=== PATIENT | female | born 1990 | race Caucasian/White ===

== ENCOUNTER 2018-04-17 19:11 | Emergency (ER) | payer BC ==
--- NOTE | 2018-04-17 20:52 | ED ---
Syncope/Near Syncope - HPI Summary HPI Summary: Patient is a 27 y/o F presenting to ED with complaints of near-syncopal episode today at 1730. 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 At this time, she reports tingling in her feet and a "bouncing" sensation. Afterwards, she had a near-syncopal episode. Patient states that she managed to catch herself against a wall. Afterwards, she felt dizzy and nausea. She denies LOC but felt close to it. PMHx of vertigo, thyroid issues is reported. She notes that present Sx are not similar to her vertigo, states this is the first episode of present Sx. Left sided chest pain and periumbilical pain is also reported. After near syncope, patient went to sit down. Hang, who is present in the room, states that patient appeared flushed. Patient was taken to [facility], BG was measured to be 114 mg/ dl. On triage, pain is rated 5/10. Nothing is noted to aggravate/alleviate Sx. Home medications and allergies are reviewed. - History Of Current Complaint Chief Complaint: EDSyncope Time Seen by Provider: 04/17/18 19:36 Hx Obtained From: Patient Onset/Duration: Sudden Onset, Lasting Hours - onset at 1730, Still Present Timing: Hours - onset 1730 today Activity At Onset: Exertion - ambulation Associated Head Trauma: No Aggravating Factor(s): Nothing Alleviating Factor(s): Nothing Associated Signs And Symptoms: Chest Pain, Dizzy, Lightheadedness, Other - POSITIVE - TINGLING IN FEET, NAUSEA, PERIUMBILICAL PAIN, FLUSHED, "BOUNCING" SENSATION; NEGATIVE - LOC - Allergies/Home Medications Allergies/Adverse Reactions: Allergies Allergy/AdvReac Type Severity Reaction Status Date / Time azithromycin Allergy Unknown Verified 04/17/18 19:24 Reaction Details Home Medications: Home Medications Cholecalciferol (Vitamin D3) [Vitamin D3] 50,000 mg PO WEEKLY 04/17/18 [History Confirmed 04/17/18] Levothyroxine TAB* [Synthroid TAB*] 75 mcg PO DAILY 04/17/18 [History Confirmed 04/17/18] Pantoprazole TAB (NF) [Protonix TAB (NF)] 40 mg PO DAILY 04/17/18 [History Confirmed 04/17/18] PMH/Surg Hx/FS Hx/Imm Hx Sensory History: Denies: Hx Legally Blind, Hx Deafness Opthamlomology History: Denies: Hx Legally Blind EENT History: Denies: Hx Deafness Infectious Disease History: No Infectious Disease History: Denies: Traveled Outside the [place] in Last 30 Days - Family History Known Family History: Negative: Blood Disorder - Social History Alcohol Use: Weekly Substance Use Type: Reports: None Smoking Status (MU): Former Smoker Review of Systems Positive: Other - POSITIVE - "BOUNCING" SENSATION, FLUSHED Positive: Chest Pain Positive: Abdominal Pain, Nausea Neurological: Other - POSITIVE - DIZZINESS, LIGHT-HEADEDNESS, TINGLING IN FEET Positive: Syncope - NEAR SYNCOPE, NO LOC All Other Systems Reviewed And Are Negative: Yes Physical Exam - Summary Physical Exam Summary: Appearance: Well-appearing, Well-nourished, lying in bed comfortably Skin: Warm, dry, no obvious rash Eyes: sclera anicteric, no conjunctival pallor ENT: mucous membranes moist, pharynx appears normal Neck: Supple, nontender Respiratory: Clear to auscultation, no signs of respiratory distress Cardiovascular: Normal S1, S2. No murmurs. Normal distal pulses in tibial and radial bilaterally. Abdomen: Soft, nontender, normal active bowel sounds present Musculoskeletal: Normal, Strength/ROM Intact Neurological: A&Ox3, awake and alert, mentation is normal, speech is fluent and appropriate Psychiatric: affect is normal, does not appear anxious or depressed Triage Information Reviewed: Yes Vital Signs On Initial Exam: Initial Vitals Temp Pulse Resp BP Pulse Ox 97.8 F 76 16 129/80 97 04/17/18 19:15 04/17/18 19:15 04/17/18 19:15 04/17/18 19:15 04/17/18 19:15 Vital Signs Reviewed: Yes Diagnostics - Vital Signs Vital Signs Temp Pulse Resp BP Pulse Ox 04/17/18 19:15 97.8 F 76 16 129/80 97 - Laboratory Result Diagrams: 04/17/18 21:01 04/17/18 21:01 Lab Statement: Any lab studies that have been ordered have been reviewed, and results considered in the medical decision making process. - Radiology CXR Radiology Interpretation Completed By: ED Physician Summary of Radiographic Findings: NAD - EKG 1928 Cardiac Rate: NL - rate of 77 bpm EKG Rhythm: Sinus Rhythm Summary of EKG Findings: Normal EKG: NSR at 77 BPM, P waves, QRS complex, and T waves are within normal limits, T waves and intervals are normal, no ischemic changes. This is a normal EKG Re-Evaluation - Re-Evaluation First Eval Re-Evaluation Time: 22:20 Comment: Results of labs and tests were discussed. Patient was discharged to home, patient is agreeable with this. Course/Dx Course Of Treatment: Patient is a 27 y/o F presenting to ED with complaints of near-syncopal episode today at 1730. 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 At this time, she reports tingling in her feet and a "bouncing" sensation. Afterwards, she had a near-syncopal episode. Patient states that she managed to catch herself against a wall. Afterwards, she felt dizzy and nausea. She denies LOC but felt close to it. PMHx of vertigo, thyroid issues is reported. She notes that present Sx are not similar to her vertigo, states this is the first episode of present Sx. Left sided chest pain and periumbilical pain is also reported. After near syncope, patient went to sit down. Hang, who is present in the room, states that patient appeared flushed. Patient was taken to [facility], BG was measured to be 114 mg/dl. Physical exam is normal. Normal EKG: NSR at 77 BPM, P waves, QRS complex, and T waves are within normal limits, T waves and intervals are normal, no ischemic changes. This is a normal EKG. Labs showed WBC 13.2, absolute neuts 10.1, lactic acid 0.9, beta HCG < 0.6. UA was negative. CXR is NAD. Results of labs and tests were discussed. Patient was discharged to home, patient is agreeable with this. - Diagnoses Provider Diagnoses: Syncope, near Discharge - Sign-Out/Discharge Documenting (check all that apply): Patient Departure - discharge - Discharge Plan Condition: Stable Disposition: HOME Patient Education Materials: Near Syncope (ED) Referrals: [facility] [Outside] No Primary Care Phys,NOPCP [Primary Care Provider] - Additional Instructions: We did not find any significant abnormalities on screening labs or EKG, other than a mild rise of your WBC count which is not very specific. It could indicate a developing infection of some type which could make you weak. For right now I have no limitations for you, but pay attention to how you feel and if your symptoms worsen or change, sometimes that is the best way to make a diagnosis. - Billing Disposition and Condition Condition: STABLE Disposition: Home - Attestation Statements Document Initiated by Elen: Yes Documenting Scribe: CHACHO FOSTER Provider For Whom Elen is Documenting (Include Credential): CORY EPPS MD Scribe Attestation: I, CHACHO FOSTER , scribed for CORY EPPS MD on 04/18/18 at 1420. Scribe Documentation Reviewed: Yes Provider Attestation: The documentation as recorded by the CHACHO carrizales accurately reflects the service I personally performed and the decisions made by me, CORY EPPS MD Status of Scribe Document: Viewed
[2018-04-17 21:10] LABS: ABS Basophils 0.1 10^3/ul (0-0.2); ABS Eosinophils 0.1 10^3/ul (0-0.6); ABS Lymphocytes 2.2 10^3/ul (1.0-4.8); ABS Monocytes 0.8 10^3/ul (0-0.8); ABS Neutrophils 10.1 10^3/ul (1.5-7.7); ABS Nucleated RBC 0 10^3/ul; Eosinophil % 0.7 %; Hematocrit 39 % (35-47); Hemoglobin 13.2 g/dl (12.0-16.0); Lymphocyte % 16.4 %; Mean Corpuscular HGB Conc 34 g/dl (31-36); Mean Corpuscular Hemoglobin 30 pg (27-31); Mean Corpuscular Volume 91 fL (80-97); Mean Platelet Volume 7.5 fL (7.4-10.4); Nucleated Red Blood Cells % 0; Platelet Count 364 10^3/ul (150-450); Red Blood Count 4.34 10^6/ul (4.00-5.40); Red Cell Distribution Width 13 % (10.5-15); White Blood Count 13.2 10^3/ul (3.5-10.8)
[2018-04-17 21:34] LABS: EGFR Non-African American 84.2 (>60)
[2018-04-17 21:52] LABS: Urine Appearance Clear; Urine Blood Negative (Negative); Urine Color Yellow; Urine Ketones Negative (Negative); Urine Protein Negative (Negative); Urine Specific Gravity 1.028 (1.010-1.030); Urine Urobilinogen Negative (Negative)
[2018-04-17 22:26] VITALS: BP 124/78
== END 2018-04-17 22:25 | disposition home or self-care (01) ==
LOC: ED 19:11
DX: R55 Syncope and collapse (principal); R07.89 Other chest pain; R42 Dizziness and giddiness; R20.2 Paresthesia of skin; R11.0 Nausea; R10.33 Periumbilical pain; Z32.02 Encounter for pregnancy test, result negative; Z88.1 Allergy status to other antibiotic agents; Z87.891 Personal history of nicotine dependence
CPT/HCPCS: 36415; 71046; 80053; 81003; 83605; 84443; 84702; 85025; 93005; 99282

== ENCOUNTER 2018-05-02 16:16 | Emergency (ER) | payer BC ==
--- NOTE | 2018-05-02 16:41 | ED ---
HPI Chest Pain - HPI Summary HPI Summary: Patient is a 27 y/o F presenting to ED with complaints of left anterior chest pain, SOB and dizziness onsetting yesterday. First day Sx were intermittent, today they have been constant. Patient states that she was resting when Sx first onset. She reports coughing that is intermittently productive as well as body aches. Fever, chills, recent trauma are denied. She notes that she has had chronic BLE edema for the past four years. No cardiac Hx reported. However, patient notes that she has been going to the [facility] at work more frequently over the past few weeks due to intermittent nausea and general illness. She is concerned about her chest pain and her diastolic BP which was measured to be high 90s at work today. Patient sees GI for chronic abdominal pain, notes that she is on PPI. Patient reports regular periods, she is not currently on her period. PSHx of tonsillectomy, Lasix surgery. Patient is a former smoker, chews tobacco. She drinks alc occasionally. Fever, chills, erythema of eyes, sore throat, abdominal pain, N/V, dysuria, hematuria, rash are not reported. On triage, pain is rated 4/10, nothing is noted to aggravate/alleviate Sx. Home medications and allergies are reviewed. - History of Current Complaint Time Seen by Provider: 05/02/18 16:37 Hx Obtained From: Patient Onset/Duration: Started Days Ago - yesterday, Still Present Timing: Constant, Lasting Days - yesterday Pain Intensity: 4 Pain Scale Used: 0-10 Numeric - 4/10 Chest Pain Location: Left Anterior Chest Pain Radiates: No Aggravating Factor(s): Nothing Alleviating Factor(s): Nothing Associated Signs and Symptoms: Positive: Chest Pain, Dizziness, Shortness of Breath, Swelling - chronic BLE, Nausea - episodes over the past few weeks, Productive Cough, Abdominal Pain - chronic, Calf Pain/Swelling - swelling at BLE , chronic, Other: - no recent trauma, fever, chills, erythema of eyes, sore throat, abdominal pain, N/V, dysuria, hematuria, rash but does note body aches. Negative: Fever, Chills, Vomiting - Allergy/Home Medications Allergies/Adverse Reactions: Allergies Allergy/AdvReac Type Severity Reaction Status Date / Time azithromycin Allergy Unknown Verified 05/02/18 16:44 Reaction Details PMH/Surg Hx/FS Hx/Imm Hx Sensory History: Denies: Hx Legally Blind, Hx Deafness Opthamlomology History: Denies: Hx Legally Blind EENT History: Denies: Hx Deafness - Family History Known Family History: Negative: Blood Disorder - Social History Alcohol Use: Weekly Substance Use Type: Reports: None Smoking Status (MU): Former Smoker Review of Systems Constitutional: Other - NEGATIVE - RECENT TRAUMA Negative: Fever, Chills Negative: Erythema Negative: Sore Throat Positive: Chest Pain Positive: Shortness Of Breath, Cough Positive: Abdominal Pain - chronic , Nausea - intermittent over the past few weeks . Negative: Vomiting Negative: dysuria, hematuria Positive: Myalgia, Edema - chronic BLE Negative: Rash Neurological: Other - POSITIVE - DIZZINESS All Other Systems Reviewed And Are Negative: Yes Physical Exam - Summary Physical Exam Summary: Constitutional: Well-developed, Well-nourished, Alert. (-) Distressed Skin: Warm, Dry HENT: Normocephalic; Atraumatic Eyes: Conjunctiva normal Neck: Musculoskeletal ROM normal neck. (-) JVD, (-) Stridor, (-) Tracheal deviation Cardio: Rhythm regular, rate normal, Heart sounds normal; Intact distal pulses; The pedal pulses are 2+ and symmetric. Radial pulses are 2+ and symmetric. (-) Murmur Pulmonary/Chest wall: Effort normal. (-) Respiratory distress, (-) Wheezes, (-) Rales Abd: Soft, (+) epigastric, RUQ and LUQ tenderness, (-) Distension, (-) Guarding , (-) Rebound Musculoskeletal: (-) Edema (+) Left CVA Tenderness Lymph: (-) Cervical adenopathy Neuro: Alert, Oriented x3 Psych: Mood and affect Normal Triage Information Reviewed: Yes Vital Signs On Initial Exam: Initial Vitals BP 108/74 05/02/18 16:38 Vital Signs Reviewed: Yes Diagnostics - Laboratory Result Diagrams: 05/02/18 17:18 05/02/18 17:18 Lab Statement: Any lab studies that have been ordered have been reviewed, and results considered in the medical decision making process. - Radiology CXR Radiology Interpretation Completed By: Radiologist Summary of Radiographic Findings: CXR IMPRESSION: No radiographic evidence of acute cardiopulmonary disease. THIS REPORT WAS REVIEWED BY ED PHYSICIAN. - CT abd/pel ct CT Interpretation Completed By: Radiologist Summary of CT Findings: CT ABD/PEL IMPRESSION: No evidence of acute intra- abdominal pathology. THIS REPORT WAS REVIEWED BY ED PHYSICIAN. - Ultrasound No standard instances Ultrasound Interpretation Completed By: Radiologist Summary of Ultrasound Findings: TRANSVAGINAL US IMPRESSION: Trace free fluid otherwise unremarkable study. THIS REPORT WAS REVIEWED BY ED PHYSICIAN. GALLBALDDER US IMPRESSION: 1. There is fatty infiltration of the liver. 2. Question mild sludge in the gallbladder. The gallbladder is otherwise. unremarkable as visualized. THIS REPORT WAS REVIEWED BY ED PHYSICIAN. - EKG 1716 Cardiac Rate: Other Rate - sinus arrhythmia with rate of 63 BPM Summary of EKG Findings: EKG showed sinus arrhythmia with rate of 63 BPM, no STEMI 2115 Cardiac Rate: Bradycardia - rate of 52 BPM EKG Rhythm: Sinus Bradycardia Summary of EKG Findings: EKG showed sinus bradycardia with rate of 52 BPM, no STEMI. Re-Evaluation - Re-Evaluation First Eval Re-Evaluation Time: 20:19 Comment: Patient states she is feeling nauseous, zofran to be given. Second Eval Re-Evaluation Time: 21:04 Comment: Patient states that she is still experiencing light-headedness and chest pain. She is tolerating PO well. Repeat EKG to be ordered. Third Eval Re-Evaluation Time: 21:22 Comment: Repeat EKG and all labs and tests were discussed, patient will be discharged to home. She is agreeable with this. Chest Pain Course/Dx - Course Course Of Treatment: Patient is a 27 y/o F presenting to ED with complaints of left anterior chest pain, SOB and dizziness onsetting yesterday. First day Sx were intermittent, today they have been constant. Patient states that she was resting when Sx first onset. She reports coughing that is intermittently productive as well as body aches. Fever, chills, recent trauma are denied. She notes that she has had chronic BLE edema for the past four years. No cardiac Hx reported. However, patient notes that she has been going to the [facility] [facility] at work more frequently over the past few weeks due to intermittent nausea and general illness. She is concerned about her chest pain and her diastolic BP which was measured to be high 90s at work today. Patient sees GI for chronic abdominal pain, notes that she is on PPI. Patient reports regular periods, she is not currently on her period. PSHx of tonsillectomy, Lasix surgery. Patient is a former smoker, chews tobacco. She drinks alc occasionally. On physical exam , epigastric, RUQ, LUQ, left CVA tenderness is noted. GALLBALDDER US IMPRESSION : 1. There is fatty infiltration of the liver. 2. Question mild sludge in the gallbladder. The gallbladder is otherwise. unremarkable as visualized. CT ABD/ PEL IMPRESSION: No evidence of acute intra-abdominal pathology. TRANSVAGINAL US IMPRESSION: Trace free fluid otherwise unremarkable study. CXR IMPRESSION: No radiographic evidence of acute cardiopulmonary disease. EKG showed sinus arrhythmia with rate of 63 BPM, no STEMI. Labs showed MPV 7.3, D-dimer < 200, glucose 114, lactic acid 1.4. First and second trop are negative. UA was negative. Monoscreen and Flu test were negative. During ED course, patient received fluids, Zofran 4 mg. Second EKG showed sinus bradycardia with rate of 52 BPM, no STEMI. Patient has no signs of pericarditis, EKG x2 was negative. All labs and tests were discussed, patient will be discharged to home. She is agreeable with this. - Diagnoses Provider Diagnoses: Chest pain, Flu-like symptoms Discharge - Sign-Out/Discharge Documenting (check all that apply): Patient Departure - discharge - Discharge Plan Condition: Stable Disposition: HOME Prescriptions: Sucralfate TAB* [Carafate*] 1 gm PO QID #20 tab Patient Education Materials: Chest Pain (ED), How to Take a Blood Pressure (ED) Forms: *Work Release Referrals: [facility] [Outside] Additional Instructions: RETURN TO THE EMERGENCY DEPARTMENT FOR CHANGING OR WORSENING SYMPTOMS. FOLLOW UP WITH PRIMARY CARE PHYSICIAN IN 2 DAYS. - Attestation Statements Document Initiated by Scribe: Yes Documenting Scribe: CHACHO FOSTER Provider For Whom Elen is Documenting (Include Credential): NICK ALVARES MD Scribe Attestation: CHACHO Mata , scribed for NICK ALVARES MD on 05/02/18 at 213. Status of Scribe Document: Ready
[2018-05-02] MEDS ORDERED: NS 0.9% 1000 ML* 1,000 ML IV ONE (17:05)
[2018-05-02 17:31] LABS: ABS Basophils 0.1 10^3/ul (0-0.2); ABS Eosinophils 0.1 10^3/ul (0-0.6); ABS Lymphocytes 2.1 10^3/ul (1.0-4.8); ABS Monocytes 0.6 10^3/ul (0-0.8); ABS Neutrophils 6.4 10^3/ul (1.5-7.7); ABS Nucleated RBC 0 10^3/ul; Eosinophil % 1.2 %; Hematocrit 42 % (35-47); Hemoglobin 14.2 g/dl (12.0-16.0); Lymphocyte % 22.6 %; Mean Corpuscular HGB Conc 34 g/dl (31-36); Mean Corpuscular Hemoglobin 31 pg (27-31); Mean Corpuscular Volume 92 fL (80-97); Mean Platelet Volume 7.3 fL (7.4-10.4); Nucleated Red Blood Cells % 0.1; Platelet Count 403 10^3/ul (150-450); Red Blood Count 4.58 10^6/ul (4.00-5.40); Red Cell Distribution Width 13 % (10.5-15); White Blood Count 9.2 10^3/ul (3.5-10.8)
[2018-05-02 17:45] LABS: Albumin 4.4 g/dL (3.2-5.2); Albumin/Globulin Ratio 1.7 (1-3); BUN/Creatinine Ratio 9.6 (8-20); Calcium 9.6 mg/dL (8.6-10.3); EGFR Non-African American 81.9 (>60); Globulin 2.6 g/dL (2-4); Potassium 4.3 mmol/L (3.5-5.0); Total Bilirubin 0.6 mg/dL (0.2-1.0)
[2018-05-02] MEDS ORDERED: Iohexol 300* (CONTRAST) 10 ML SDV IV ONE (18:42)
[2018-05-02 19:16] LABS: Urine Appearance Clear; Urine Bilirubin Negative (Negative); Urine Blood Negative (Negative); Urine Color Straw; Urine Glucose Negative (Negative); Urine Ketones Negative (Negative); Urine Nitrite Negative (Negative); Urine Protein Negative (Negative); Urine Specific Gravity 1.005 (1.010-1.030); Urine Urobilinogen Negative (Negative)
[2018-05-02] MEDS ORDERED: Ondansetron ODT TAB* 4 MG PO ONE (20:19)
[2018-05-02] MEDS ORDERED: Ondansetron ODT TAB* 4 MG ONE (20:21)
[2018-05-02] MEDS ORDERED: O ndansetron ODT 4MG 5TAB PRPK 4 MG PAK PO ONE (21:17)
[2018-05-02 21:53] VITALS: BP 109/62
[2018-05-02 21:56] LABS: TSH (Thyroid Stimulating Horm) 3.37 mcIU/mL (0.34-5.60)
[2018-05-02 22:52] LABS: Free T4 0.93 ng/dL (0.61-1.12)
== END 2018-05-02 21:51 | disposition home or self-care (01) ==
LOC: ED 16:16
DX: R07.9 Chest pain, unspecified (principal); R06.02 Shortness of breath; R42 Dizziness and giddiness; Z87.891 Personal history of nicotine dependence; K76.0 Fatty (change of) liver, not elsewhere classified
CPT/HCPCS: 36415; 71046; 74177; 76705; 76830; 80053; 81003; 83605; 84439; 84443; 84484; 85025; 85379; 86308; 93005; 96360; 99282; A9270-GY; Q9967